=== PATIENT | male | born 1960 | race Caucasian/White ===

== ENCOUNTER 2024-09-03 05:40 | Observation (INO) ==
--- NOTE | 2024-08-20 08:58 | Anesthesiology Consultation ---
Date of Service August 20, 2024 Assessment & Plan (1) Encounter for pre-operative examination: - Check BSG DOS - Infectious disease screening: Per assessment on 08/20/24- No known recent infectious disease contacts or current infectious disease symptoms. - S/P TURP (04/01/24): BABAKA iGel #4 at [facility]. No issues noted per post-op anesthesia progress note. Chart Review Chart Review: Acceptable Risk for Surgery and Patient NOT seen in Pre Admission Testing History Surgery Operation Date: 08/27/24 09:40 Proposed Procedures p Robotic Assisted Laparoscopic Radical Retropubic Prostatectomy, Possible Open, Possible Pelvic Lymph Node Dissection - Rojelio Moe MD Height/Weight Height: 5 ft 10 in Weight: 88.451 kg Allergies Allergy/AdvReac Type Severity Reaction Status Date / Time amoxicillin Allergy Unknown Rash Verified 08/16/24 13:52 Medications Home Medications Medication Instructions Recorded Confirmed Last Taken atorvastatin 20 mg tablet (Lipitor) 20 mg PO QAM 03/13/24 08/16/24 03/29/24 fenofibrate 160 mg tablet 160 mg PO DAILY 03/13/24 08/16/24 03/29/24 losartan 25 mg tablet 25 mg PO QPM 03/13/24 08/16/24 03/29/24 pantoprazole 40 mg tablet,delayed 40 mg PO DAILY 03/13/24 08/16/24 03/31/24 release semaglutide 1 mg/dose (4 mg/3 mL) 1 mg subcut WK 03/13/24 08/16/24 08/13/24 subcutaneous pen injector (Ozempic) tadalafil 5 mg tablet 0 mg PO UD 03/13/24 08/16/24 03/29/24 empagliflozin 25 mg tablet 25 mg PO QAM 03/26/24 08/16/24 03/29/24 (Jardiance) tamsulosin 0.4 mg capsule 0 mg PO QPM 03/26/24 08/16/24 03/29/24 Past Medical History Medical History BPH NOS w ur obs/LUTS Diabetes mellitus, type 2 NIDDM; losartan for renal protection Fatty liver Per records, patient unsure GERD (gastroesophageal reflux disease) Hepatomegaly Per records, patient unsure History of recurrent UTI (urinary tract infection) Hyperlipidemia Prostate cancer Dx 2023 Past Family History Family History Uncle Prostate cancer Mother Diabetes Past Surgical History Surgical History History of open reduction and internal fixation (ORIF) procedure 1982, left ankle > hardware intact (2 screws) History of surgical removal of ganglion cyst right wrist, 2017 History of transurethral resection of prostate 2023 Hx of appendectomy 1977 Hx of colonoscopy Approximately 2014 Hx of right inguinal hernia repair 07/2022 [place] teeth extracted 1 tooth, 11/2023 Social History Smoking Status: Never smoker Do You Dip or Chew Tobacco: No alcohol intake frequency: holidays/special occasions only Hx Substance Use: No substance use type: does not use Lab Results Anesthesia Preop Results Results Anesthesia Widget: WBC 6.05 K/ul (4.8-10.8) 08/02/24 Hgb 15.6 g/dl (14.0-18.0) 08/02/24 Hct 45.2 % (42.0-52.0) 08/02/24 Plt 218 K/uL (130-400) 08/02/24 Na 140 mmol/L (136-145) 08/02/24 K 4.3 mmol/L (3.5-5.1) 08/02/24 Cl 107 mmol/L (98-107) 08/02/24 CO2 28 mmol/L (21-32) 08/02/24 BUN 20 mg/dl (6-23) 08/02/24 Creat 0.95 mg/dl (0.6-1.4) 08/02/24 Glucose Level 105 mg/dl (70-99(Fasting)) H 08/02/24 Testing Electrocardiogram Date: 03/25/24 SR with occasional PACs. R axis Chest X-Ray Date: 03/25/24 Findings: + NAD
[~2024-09-03 05:40] MED LIST: HEPARIN SOD 5,000 UNIT/0.5 ML VIAL SQ SCH; LR 15ML/HR IV SCH; ceFAZolin 3000MG 3,000 MG/72.5 ML BAG IV SCH
[2024-09-03] MEDS: HEPARIN SOD 5,000 UNIT/0.5 ML VIAL SQ SCH ×2 (06:34→20:33)
[2024-09-03] MEDS: LACTATED RINGER'S 1,000 ML IV SCH (06:35)
[2024-09-03] MEDS: LR 15ML/HR IV SCH (06:35)
[2024-09-03] MEDS ORDERED: fentaNYL citrate PF 100 MCG/2 ML VIAL ONE ×3 (07:01→08:39)
[2024-09-03] MEDS ORDERED: MIDAZOLAM HCL 1 MG/ML 2ML VIAL ONE (07:01)
[2024-09-03] MEDS ORDERED: ONDANSETRON INJ 2 MG/ML 2 ML VIAL ONE (07:01)
[2024-09-03] MEDS ORDERED: GLYCOPYRROLATE 0.2 MG/ML VIAL ONE (07:01)
[2024-09-03] MEDS ORDERED: DEXAMETHASONE SOD INJ 4 MG/ML VIAL ONE (07:01)
[2024-09-03] MEDS ORDERED: LIDOCAINE 2% 2 ML VIAL/AMP(20MG/ML) INFIL ONE (07:01)
[2024-09-03] MEDS ORDERED: PROPOFOL IV EMULSION 10 MG/ML 20 ML VIAL IV ONE (07:01)
[2024-09-03] MEDS ORDERED: ROCURONIUM BROMIDE 10 MG/ML 5 ML VIAL IV ONE (07:01)
[2024-09-03] MEDS ORDERED: SUGAMMADEX SODIUM 200 MG/2 ML VIAL IV ONE (07:07)
[2024-09-03] MEDS ORDERED: PROMETHAZINE HCL 6.25 MG in SODIUM CHLORIDE 0.9% 50 ML IV PRN (07:22)
[2024-09-03] MEDS ORDERED: ATROPINE SULFATE 0.1 MG/ML 10ML SYR IV PRN (07:22)
[2024-09-03] MEDS ORDERED: HYDROmorphone INJ 2 MG/ML SYR/VIAL IV PRN (07:22)
[2024-09-03] MEDS ORDERED: ePHEDrine sulfate 50 MG/ML AMP IV PRN (07:22)
--- NOTE | 2024-09-03 07:23 | History & Physical Report ---
Date of Service September 03, 2024 Assessment & Plan (1) Prostate cancer: Plan Prior TURP, prostate cancer presenting today for radical prostatectomy risks, benefits, and expectations reviewed History of Present Illness Primary Care Provider: Avril Shoemaker Prostate cancer - presenting for definitive treatment Allergies Allergy/AdvReac Type Severity Reaction Status Date / Time amoxicillin Allergy Intermediate Rash Verified 09/03/24 06:25 Home Medications Medication Instructions Recorded Confirmed Type atorvastatin 20 mg tablet (Lipitor) 20 mg PO QAM 03/13/24 09/03/24 History fenofibrate 160 mg tablet 160 mg PO DAILY 03/13/24 09/03/24 History losartan 25 mg tablet 25 mg PO QPM 03/13/24 09/03/24 History pantoprazole 40 mg tablet,delayed 40 mg PO DAILY 03/13/24 09/03/24 History release semaglutide 1 mg/dose (4 mg/3 mL) 1 mg subcut WK 03/13/24 09/03/24 History subcutaneous pen injector (Ozempic) tadalafil 5 mg tablet (Cialis) 0 mg PO UD 03/13/24 09/03/24 History empagliflozin 25 mg tablet 25 mg PO QAM 03/26/24 09/03/24 History (Jardiance) tamsulosin 0.4 mg capsule 0.4 mg PO QPM 03/26/24 09/03/24 History Past Med/Surg History Problem List Encounter for pre-operative examination Medical History BPH NOS w ur obs/LUTS Diabetes mellitus, type 2 NIDDM; losartan for renal protection Fatty liver Per records, patient unsure GERD (gastroesophageal reflux disease) Hepatomegaly Per records, patient unsure History of recurrent UTI (urinary tract infection) Hyperlipidemia Prostate cancer Dx 2023 Surgical History History of open reduction and internal fixation (ORIF) procedure 1982, left ankle > hardware intact (2 screws) History of surgical removal of ganglion cyst right wrist, 2017 History of transurethral resection of prostate 2023 Hx of appendectomy 1977 Hx of colonoscopy Approximately 2014 Hx of right inguinal hernia repair 07/2022 [place] teeth extracted 1 tooth, 11/2023 Family History Uncle Prostate cancer Mother Diabetes Social History Smoking Status: Never smoker Second Hand Exposure: No; Do You Dip or Chew Tobacco: No; Hx Substance Use: No Preferred Language: Iraqi Communication Ability: Effective Tin Flipper Required: No Beliefs That Will Affect Care: None marital status: Current Living Situation: Other Current Living Situation Comment: fiance current occupational status: employed Feels Safe at Home: Yes Assistive Devices: Glasses Physical Exam Constitutional: well developed and well nourished Neck: neck nontender Respiratory: normal respiratory effort; no respiratory distress and does not use accessory muscles Cardiovascular: Rate/Rhythm: regular rate Vessels: radial pulses present Extremities: no edema Gastrointestinal (Abdomen): Inspection/Auscultation: abdomen normal to inspection Percussion/Palpation: abdomen soft; abdomen nontender and no guarding Musculoskeletal: Head/Neck/Chest: normocephalic and head atraumatic Extremities: extremities normal to inspection Skin: no rashes and no lesions Trauma: no evidence of skin trauma Neurologic: awake; not obtunded Speech / Cognition: normal speech Motor/Sensory: no tremor Psychiatric: Orientation: alert and oriented x 3 Genitourinary: no CVA tenderness Lymphatic: no lymphadenopathy Results & Data Vital Signs (Past 12 Hours) Vital Signs Temp Pulse Resp BP Pulse Ox O2 Del Method 09/03/24 06:27 36.9 C 85 18 144/81 H 96 Room Air
[2024-09-03] MEDS: ceFAZolin 2000MG 2,000 MG/15 ML SYR IV SCH ×3 (07:39→17:25)
[2024-09-03] MEDS: SURGICEL ABSORB HEMOSTAT 2IN X 14IN TOP ONE (09:14)
[2024-09-03] MEDS: BUPIVACAINE 0.5 % 5 MG/1 ML MPF 30ML VIAL ONE (10:21)
[2024-09-03] MEDS: FLOSEAL HEMOSTATIC MATRIX 10ML TOP ONE (10:22)
--- NOTE | 2024-09-03 10:53 | Operative Report ---
PG Post Operative Report Pre & Post Diagnosis Operation Date: 09/03/24 07:30 Pre-Op Diagnosis: Malignant Neoplasm of Prostate Post-Op Diagnosis: Malignant Neoplasm of Prostate I identified the patient and participated in the time-out.: Yes Procedure Operation Date: 09/03/24 07:30 Actual Procedures p Robotic Assisted Laparoscopic Radical Retropubic Prostatectomy and Pelvic Lymph Node Dissection(Not Applicable) - Rojelio Moe MD Surgeon Rojelio Moe MD Letterer Dixie Dennis Estimated Blood Loss 20 Findings Consistent with Post-Op Diagnosis Specimens 1. Periprostatic fat 2. Left pelvic lymph nodes 3. Right pelvic lymph nodes 4. Prostate seminal vesicles Description of Procedure The patient was identified in the preoperative holding area, appropriate informed consents were reviewed and completed, and he was transported to the operating suite. Subcutaneous heparin was administered in the pre-operative holding area. Upon arrival in the operating suite, he received appropriate antibiotics and general anesthesia. He was positioned in dorsal lithotomy, a B&O suppository was inserted after digital rectal exam, and he was prepped and draped in standard fashion. A Lakhani catheter was inserted in the sterile field. A Veress needle was passed per umbilicus with uniform insufflation of the abdomen to 15mmHg. He was placed in steep Trendelenburg position. A periumbilical incision was then made to accommodate a 12mm Visiport with 10mm 0degree laparoscope. Inspection of the abdomen was carried out, and there was no evidence of traumatic entry or injury secondary to the Veress needle. After confirming a clear anterior abdominal wall, ports were subsequently placed in standard robotic prostatectomy fashion without incident. To begin the robotic portion of the case, the left lateral aspect of the sigmoid was mobilized off of the left pelvic side wall to allow the pouch of Amado to be appropriately visualized. He additionally has had a prior right inguinal hernia repair as well as an open appendectomy. He had some mild adhesions in the right lower quadrant which were freed. I then made an incision in the pouch of Amado, overlying the seminal vesicles. Both SVs as well as the ampullae of the vasa were entirely dissected, with the vasa transected 3cm from the prostate. The medial umbilical ligaments were then controlled with bipolar electrocautery just inferior to the umbilicus. Following cauterization, they were divided utilizing monopolar cautery. A peritoneal incision was carried from this location to the medial aspect of the internal inguinal rings bilaterally with care to avoid opening through the ring. This incision was concluded when the vas deferens was reached. Dissection of the bladder and prostate off of the posterior aspect of the pubic arch was completed allowing full visualization of the prostate. The fat overlying the prostate was removed en bloc and passed off the table as a specimen labeled "periprostatic fat". The endopelvic fascia was cleared during this portion of the procedure, and subsequently opened - first on the right and then the left. The incision through the endopelvic fascia began near the prostate-bladder junction and was carried to the apex with extreme care to preserve all lateral levator musculature as well as the periurethral musculature and sphincter complex. I additionally preserved the puboprostatic ligaments. I then controlled the DVC with a 2-0 V-lock suture in overlapping/figure of 8 fashion. The lymph node dissection was then conducted. External iliac vessels were identified on the pelvic side wall. The packet of fat and lymphatic tissue that resides just under the iliac vein was elevated and off of the vein with a split and roll technique. The packet was dissected laterally to the circumflex vein and distally to the obturator nerve which was preserved. The proximal aspect of the packet was carried towards the bifurcation of the iliac vessels. A combination of monopolar and bipolar cautery were used to assist with control. After completing the dissection on both sides, the packets were collected and passed off of the table as specimens labeled "pelvic lymph nodes". My attention then returned to the prostate, with identification of the bladder neck aided by gentle traction on the Lakhani catheter and lateral to medial pressure at the presumed level of the bladder neck with the robotic instruments. Of note, this patient has had a prior TURP so I used extreme caution around the bladder neck. Fortunately, the contour of the lateral and posterior aspect of the prostate was quite easy to follow towards the junction of the bladder. An anterior cystotomy was made, the Lakhani balloon deflated and the catheter guided through the incision to allow anterior retraction. I attempted to preserve maximal bladder neck musculature as I circumferentially dissected around the bladder neck, however, given his prior TURP, I was cautious in this regard. I additionally was very vigilant about the UOs. I was never able to adequately visualize these areas, but my location of incision was extremely close to the prior TUR scar, so I believe the location was quite safe. After incision through the posterior aspect of the mucosa, the dissection was carried through detrusor muscle until the bilateral ampullae of the vasa were identified. The previously dissected vasa and SVs were brought through the incision and used to elevated the prostate anteriorly. A posterior plane behind the prostate was then developed - splitting Denonvilliers's fascia. This dissection was carried as far as possible towards the apex as well as far as possible laterally. An incision in the lateral prostatic fascia was then made bilaterally to facilitate control of the vascular pedicles and preservation of the nerve bundles. Vasculature running along the posterior/lateral aspect of the prostate was preserved as well as the tissue containing the nerves. This patient had Tammie 8 prostate cancer, however this was located only on the TURP specimen and not on any of his standard sextant biopsies. With this in mind I did elect to perform nerve sparing approach. The pedicles were then controlled with a solitary weck clip on each side. The apical attachments of the prostate were remaining at that stage. The DVC was divided after control with bipolar cautery over the prostate. Continuous inspection from anterior and lateral views allowed me to closely follow the apical contour of the prostate and maximally preserve urethral length and tissue. The prostate was entirely freed at that point, and collected in an EndoCatch bag before being moved out of the field of vision. Hemostasis was confirmed and anastomosis of the bladder and urethra was completed utilizing a double armed V- Lock stitch. A new Lakhani catheter was inserted and the anastomosis tested with irrigation. There was no evidence of leak. A binh style stitch was placed bilaterally to functionally marsupialize the area of the lymph node dissection. The robot was undocked, the specimen extracted through expansion of the alice- umbilical camera port. The fascia was closed with a series of 0-PDS figure of 8 stitches. The right communication assistant port was closed in two layers - with a figure of 8 0-Vicryl to reapproximate the fascia followed by 4-0 Monocryl to close the skin. Monocryl was used to close all other skin incisions. All wounds were dressed with Dermabond. The case was concluded and the patient taken to the PACU in stable condition. Dixie Dennis assisted from incision to closure. There were no complications I attest to the content of the Intraoperative Record and any orders documented therein. Any exceptions are noted below.
[2024-09-03 11:10] LABS: Basophils # (auto) 0.04 K/uL (0.00-0.20); Basophils % (auto) 0.3 %; Eosinophils # (auto) 0.02 K/uL (0.00-0.50); Eosinophils % (auto) 0.2 %; Hemoglobin 14.3 g/dl (14.0-18.0); Immature Granulocytes # (auto) 0.13 K/uL (0.01-0.20); Immature Granulocytes % (auto) 1.1 %; Lymphocytes # (auto) 1.32 K/uL (1.20-3.40); Lymphocytes % (auto) 11.1 %; Mean Corpuscular Hemoglobin 30.3 pg (25.0-34.0); Mean Corpuscular Hgb Conc 33.3 g/dL (32.0-36.0); Mean Corpuscular Volume 91.1 fL (80.0-100.0); Mean Platelet Volume 10.2 fL (9.4-12.4); Monocytes # (auto) 0.22 K/uL (0.11-0.59); Monocytes % (auto) 1.8 %; Neutrophils # (auto) 10.17 K/uL (1.40-6.50); Neutrophils % (auto) 85.5 %; Platelet Count 256 K/uL (130-400); RDW Coefficient of Variation 13.1 % (11.5-14.5); RDW Standard Deviation 43.8 fL (36.4-46.3); Red Blood Count 4.72 M/uL (4.70-6.10)
[2024-09-03 11:27] LABS: BUN Creatinine Ratio 21.7 (10-20); Calcium 8.4 mg/dl (8.6-10.3); Creatinine Clr Calc Pharmacy 70.8 ml/min; Potassium 4.6 mmol/L (3.5-5.1)
[2024-09-03] MEDS ORDERED: ONDANSETRON INJ 2 MG/ML 2 ML VIAL IV PRN (13:06)
[2024-09-03] MEDS ORDERED: PHARMACY GLYCEMIC MGMT CONSULT PRN (13:06)
[2024-09-03] MEDS ORDERED: oxyCODONE HCL IR 5 MG TAB (IMMEDIATE RELEASE) PO PRN ×2 (13:06)
[2024-09-03] MEDS ORDERED: HYDROmorphone INJ 0.5 MG/0.5 ML SYR IV PRN ×2 (13:06)
[2024-09-03] MEDS ORDERED: DEXTROSE 50% 50 ML SYRINGE IV PRN (13:30)
[2024-09-03] MEDS ORDERED: CARBOHYDRATES FOR HYPOGLYCEMIA PO PRN (13:30)
[2024-09-03] MEDS ORDERED: GLUCOSE 10 TAB/TUBE PO PRN (13:30)
[2024-09-03] MEDS ORDERED: GLUCOSE 40% GEL 15 GM TUBE PO PRN (13:30)
[2024-09-03] MEDS: SODIUM CHLORIDE 0.9% 1,000 ML IV SCH (13:30)
[2024-09-03] MEDS ORDERED: GLUCAGON FOR INJ 1 MG VIAL SQ PRN (13:30)
--- NOTE | 2024-09-03 13:49 | Anesthesiology Progress Note ---
Date of Service September 03, 2024 Anesthesia Post Procedure Vital Signs Vital Signs: Temp Pulse Resp BP Pulse Ox O2 Del Method O2 Flow Rate 09/03/24 12:55 95 H 12 139/77 96 Room Air 09/03/24 12:25 93 H 12 135/79 92 Room Air 09/03/24 12:10 95 H 12 142/80 H 93 Room Air 09/03/24 11:55 91 H 12 152/76 H 93 Room Air 09/03/24 11:40 91 H 12 149/80 H 94 Room Air 09/03/24 11:25 90 12 144/78 H 93 Room Air 09/03/24 11:15 36.8 C 90 12 150/79 H 94 Room Air 09/03/24 11:05 90 12 153/82 H 96 Room Air 09/03/24 10:55 92 H 16 155/84 H 100 Oxymask 8 09/03/24 10:45 92 H 12 160/81 H 100 Oxymask 8 09/03/24 10:39 36.4 C L 95 H 14 160/82 H 97 Oxymask 8 09/03/24 06:27 36.9 C 85 18 144/81 H 96 Room Air Transfer of Care Handoff Completed per policy Notes Mental Status: alert / awake / arousable and participated in evaluation Nausea / Vomiting: adequately controlled Pain: adequately controlled Airway Patency, RR, SpO2: stable & adequate BP & HR: stable & adequate Hydration State: stable & adequate Anesthetic Complications: no major complications apparent and Pt Satisfied with anesthetic care
[2024-09-03] MEDS: ACETAMINOPHEN 325 MG TAB PO SCH (14:08)
--- NOTE | 2024-09-03 14:15 | Pharmacy Report ---
Pharmacy Glycemic Short Note 2 - Date of Service September 03, 2024 - Glycemic Short BSG Results (Last 24 hours): 09/03/24 09/03/24 09/03/24 06:21 10:43 10:51 Glucose 188 H POC Glucose 130 H 178 H OUTPATIENT ANTIDIABETIC REGIMEN: * jardiance 25 mg daily, ozempic 1 mg sq weekly ASSESSMENT: * 64 year old s/p surgery, POD 0 - pharmacy consulted for glycemic management. BSGs>180 postop, did receive IV steroids intraoperatively. Will give Lantus 0.2 units/kg x 1 now to help cover steroids and start novolog for now. PLAN FOR INPATIENT GLYCEMIC CONTROL: * Hold outpatient oral diabetes medications * Basal insulin * Lantus 18 units x 1 * Bolus insulin * NovoLog per scale ACHS or Q6hrs while NPO * Goal Range: Low 110 mg/dL - High 140 mg/dL * Correction Factor: 25 mg/dL/unit * Nutritional / Prandial insulin per carb ratio of 1 unit per 7 grams CHO consumed
[2024-09-03] MEDS: LANTUS PER UNIT CHARGE SC ONE (14:19)
[2024-09-03] MEDS: INSULIN ASPART PER UNIT CHARGE SC SCH ×2 (14:20→23:29)
[2024-09-03] MEDS: LOSARTAN POTASSIUM 25 MG TAB PO SCH (20:33)
[2024-09-03] MEDS: PANTOprazole 40 MG TAB PO SCH (20:33)
[2024-09-03] MEDS: DOCUSATE SODIUM 100 MG CAP PO SCH (20:36)
[2024-09-04 03:36] VITALS: O2SAT 96
[2024-09-04 07:20] VITALS: PULSE 92; RESP 16; TEMP 97.5
--- NOTE | 2024-09-04 08:04 | Urology Progress Note ---
Date of Service September 04, 2024 Assessment & Plan (1) Prostate cancer: Plan: Postop day #1 status post prostatectomy Doing exceptionally well Advance diet Labs pending but I have no concerns Plan for discharge home later this morning Admission and Anticipated Discharge Date Admission Date: September 03, 2024 Subjective Did exceptionally well overnight Was ambulatory Pain is very well-controlled Urine is clear Anxious for breakfast Physical Exam Physical Exam: Incisions appropriate, minimal ecchymosis in the inferior umbilical area Results & Data Vital Signs (Past 12 Hours) Vital Signs Temp Pulse Resp BP BP Pulse Ox O2 Del Method 09/04/24 07:19 36.4 C L 92 H 16 153/75 H 96 Room Air 09/04/24 03:00 36.8 C 79 18 105/65 96 Room Air 09/03/24 23:00 36.8 C 90 16 115/65 94 Room Air PG Care Time/CCT Total # of Minutes Spent Total Time Spent with Patient: Total time spent is greater than 50% in coordination of care (as documented) at patient's floor/unit and/or counseling patient: Coding Level of Care Code None Diagnoses Prostate cancer C61
[2024-09-04 08:08] LABS: Basophils # (auto) 0.03 K/uL (0.00-0.20); Basophils % (auto) 0.3 %; Eosinophils # (auto) 0.02 K/uL (0.00-0.50); Eosinophils % (auto) 0.2 %; Hematocrit (blood only) 38.7 % (42.0-52.0); Hemoglobin 12.9 g/dl (14.0-18.0); Immature Granulocytes # (auto) 0.04 K/uL (0.01-0.20); Immature Granulocytes % (auto) 0.4 %; Lymphocytes % (auto) 17.4 %; Mean Corpuscular Hemoglobin 30.5 pg (25.0-34.0); Mean Corpuscular Hgb Conc 33.3 g/dL (32.0-36.0); Mean Corpuscular Volume 91.5 fL (80.0-100.0); Mean Platelet Volume 10.6 fL (9.4-12.4); Monocytes # (auto) 0.78 K/uL (0.11-0.59); Neutrophils # (auto) 7.19 K/uL (1.40-6.50); Neutrophils % (auto) 73.7 %; Platelet Count 220 K/uL (130-400); RDW Coefficient of Variation 13.2 % (11.5-14.5); RDW Standard Deviation 44.7 fL (36.4-46.3); Red Blood Count 4.23 M/uL (4.70-6.10); White Blood Count 9.76 K/ul (4.8-10.8)
[2024-09-04 08:15] LABS: BUN Creatinine Ratio 17.5 (10-20); Creatinine Clr Calc Pharmacy 77.3 ml/min; Potassium 4.1 mmol/L (3.5-5.1)
[2024-09-04] MEDS: ATORVASTATIN 20 MG TAB PO SCH (08:44)
[2024-09-04] MEDS ORDERED: PANTOprazole 40 MG TAB PO SCH (09:00)
[2024-09-04 09:53] VITALS: BP 105/65
--- NOTE | 2024-09-04 09:53 | Discharge Summary ---
Date of Service September 04, 2024 Admission HPI Per Admitting Provider Prostate cancer - presenting for definitive treatment Principal Diagnosis Prostate cancer Discharge Exam Constitutional well developed and well nourished; no acute distress Respiratory normal respiratory effort; no respiratory distress and no labored breathing Gastrointestinal (Abdomen) Inspection/Auscultation: abdomen normal to inspection Musculoskeletal Head/Neck/Chest: normocephalic Skin Incisions C/D/I with dermabond Neurologic moves all extremities and awake Psychiatric Orientation: alert and oriented x 3 Genitourinary Lakhani with clear yellow urine Discharge Data Allergies Allergy/AdvReac Type Severity Reaction Status Date / Time amoxicillin Allergy Intermediate Rash Verified 09/03/24 06:25 Procedures Performed Operation Date: 09/03/24 07:30 Actual Procedures p Robotic Assisted Laparoscopic Radical Retropubic Prostatectomy and Pelvic Lymph Node Dissection(Not Applicable) - Rojelio Moe MD Hospital Course (1) Prostate cancer: Postop day #1 status post prostatectomy Doing exceptionally well Ambulating Tolerating regular diet Labs stable Plan for discharge home later this morning Maintain Lakhani catheter Total Time Total Time Spent Total Time Spent (In Minutes): 29 Discharge Plan Discharge Items Patient Disposition: Home - Self-Care Reason For Visit: Malignant Neoplasm of Prostate Discharge Diagnosis: Malignant neoplasm of prostate Activity: Per Instructions section Lifting: No more than 10 pounds Bathing Comment: Okay to shower after discharge, no tub bath or soaking Sexual Activity: Wait until after follow-up appointment Exercise/Sports: Wait until after follow-up appointment Driving/Machine Use: No driving while taking prescription pain medication Non-emergency contact: Surgeon and Urologist Call non-emergency contact if: your pain is not controlled, you have a fever, your temperature is above 101, your wound has increased redness, your wound has increased drainage and your wound pain has increased Follow-up/Referrals: Avril Shoemaker DO [Primary Care Provider] - Diet: Carb Consistent or DM2 Addtl Attending Provider Instructions: Please take all medications as prescribed and keep all follow-ups as scheduled. Please call our office at [phone] with any questions, concerns or need to reschedule appointments for any reason. We are happy to assist you. Activity: We recommend having someone with you for the first few days after surgery to help care for you. For the first 2 weeks after surgery, we would like you to get up and walk around your house. However, we recommend limit physical activity that would increase your heart rate. This will allow your body to rest and heal. Take naps if you feel tired. Don't lift anything heavier than 10 pounds, mow the law or ride a bicycle until your follow-up appointment. Please avoid long car rides. Home Care: Unless directed otherwise, drink 6 to 8 glasses of water a day (enough to keep your urine light colored). This will also help keep a healthy flow of urine. We recommend using a stool softener for the first two weeks to avoid constipation. Lakhani Catheter or Suprapubic Catheter care: Keep the catheter well secured with either a leg back or leg strap with large bag. Empty your bag when it's about half full. You may notice some blood in the bag. This is normal after surgery and while the catheter is in place. Use mild soap (such as Dove or Dial) and water to wash the catheter and the head of your penis daily, or more frequently if needed. Return to your normal diet, we encourage good protein intake to promote h ealing. You may shower as normal. Please avoid tub baths or soaking until catheter removed and incisions well healed. Wearing sweat pants while you have the catheter is recommended, they will be more comfortable. Follow-up Your follow up appointments for having your catheter removed, and follow up with your physician should already be scheduled. If you have any questions regarding this, please contact our office. Your final pathology report will be discussed at your physician follow-up appointment. Call [facility] at [phone] right away if you have any of the following: Chest pain or trouble breathing (call 260 or go to the hospital) Fever of 101F or higher, uncontrolled vomiting Heavy bleeding, clots, or bright red blood from the catheter Catheter that falls out or stops draining Foul-smelling discharge from your catheter Redness, swelling, warmth, or increased pain at your incision site Drainage, pus, or bleeding from your incision Pending Studies at Discharge: Yes Stand-Alone Forms: My Glimpse, Smoking Cessation Medications and DC Order Prescriptions: New oxycodone-acetaminophen [Percocet] 5-325 mg tablet 1 tab PO TID PRN (Reason: pain) Qty: 6 0RF ciprofloxacin HCl 500 mg tablet 500 mg PO BID Qty: 6 0RF Rx Instructions: Start 1 day prior to catheter removal Continued Ozempic 1 mg/dose (4 mg/3 mL) pen injector 1 mg subcut WK Patient Comments: tuesdays atorvastatin [Lipitor] 20 mg tablet 20 mg PO QAM losartan 25 mg tablet 25 mg PO QPM fenofibrate 160 mg tablet 160 mg PO DAILY Patient Comments: time varies pantoprazole 40 mg tablet,delayed release (DR/EC) 40 mg PO DAILY Patient Comments: time varies tadalafil [Cialis] 5 mg tablet 0 mg PO UD Patient Comments: current rx, no use over the last month. Jardiance 25 mg tablet 25 mg PO QAM Discontinued tamsulosin 0.4 mg capsule 0.4 mg PO QPM Discharge Orders: Discharge Order (Routine); Ordered 09/04/24 Ordered By: Dixie Dennis Admission Data Admit Date/Time: 09/03/24 10:35 Attending Provider: Rojelio Moe Admit Provider: Rojelio Moe Primary Care Provider: Avril Shoemaker Coding Level of Care Code 76882 IN/OBS DISCH 30 MIN/LESS Diagnoses Prostate cancer C61
[2024-09-04 11:09] LABS: Estimated Average Glucose 163 mg/dl; Hemoglobin A1C 7.3 % (4.5-5.6)
== END 2024-09-04 11:28 | disposition home or self-care (01) ==
LOC: ASU 05:40 → INTOOBSV 10:35 → PACUINP 10:35 → 3W 13:34